=== PATIENT | female | born 1960 | race Caucasian/White ===

== ENCOUNTER 2018-12-21 08:06 | Outpatient (CLI) | payer BC, SELFPAY ==
--- NOTE | 2019-01-05 09:41 | ZIOP_ITS ---
[facility] MONITOR DATE OF DICTATION January 05, [address] 10 days, 1 hour, December 21 - 2018. Baseline rhythm sinus. Rare single PAC. 2 bursts SVT, longest 17 beat duration, fastest 154 beats per minute. No atrial fibr illation. Rare single PVC. No VT. No bradycardia or block. 12 triggered events all occurring during sinus rhythm, 67-87 beats per minute. 3 symptomatic episodes: Dizziness noted 3 times during sinus rhythm 71-82 beats per minute. Average heart rate sinus 70 beats per minute, range 52-109 beats per minute. Yoshi Ly M.D. DIAZ/amira T - 01/05/2019
== END 2018-12-21 08:26 ==
PROVIDERS: PCP Family Medicine; Visit Provider Family Medicine
DX: R42 Dizziness and giddiness (principal); I49.1 Atrial premature depolarization
CPT/HCPCS: 0296T

== ENCOUNTER 2019-01-03 01:28 | Outpatient (CLI) | payer BC, SELFPAY ==
[2019-01-03 07:38] LABS: HCT 42.7 % (36.0-46.0); HGB 13.9 g/dL (12.0-15.5); Mean Corp. HGB Concentration 32.6 g/dL (32.0-36.0); Mean Corpuscular Hemoglobin 28.4 pg (27.0-33.0); Mean Corpuscular Volume 87.3 fL (80-95); Mean Platelet Volume 9.8 fL (8.0-11.0); Platelet Count 281 x1000/uL (130-400); RBC 4.89 m/cumm (4.00-5.20); RBC Distribution Width 15.1 % (11.7-14.6); White Blood Cell Count 6.32 k/cumm (4.4-10.8)
[2019-01-03 07:54] LABS: Hemoglobin A1C 6.4 % (4.5-6.2)
[2019-01-03 08:55] LABS: ALT 31 U/L (14-59); AST 20 U/L (15-37); Albumin 3.5 g/dL (3.4-5.0); Alkaline Phosphatase 105 U/L (46-116); Anion Gap 11.7 mmol/L (3-11); BUN 12 mg/dL (7-18); Bilirubin, Total 0.2 mg/dL (0.2-1.0); CO2 24.3 mmol/L (21.0-32.0); CREATININE 0.83 mg/dL (0.55-1.02); Calcium 8.6 mg/dL (8.5-10.1); Calculated LDL 145 mg/dL; Chloride 106 mmol/L (98-107); Cholesterol 217 mg/dL (50-200); Glucose 110 mg/dL (70-100); HDL Cholesterol 39 mg/dL (40-60); Potassium 4.5 mmol/L (3.5-5.1); Sodium 142 mmol/L (136-145); TSH (W/Ref FT4) 4.55 uIU/mL (0.36-3.74); Total Protein 7.2 g/dL (6.4-8.2); Triglyceride 165 mg/dL (30-150); Vitamin B12 1897 pg/mL (193-986)
[2019-01-03 09:14] LABS: FREE T4 0.87 ng/dL (0.76-1.46)
== END 2019-01-03 01:48 ==
PROVIDERS: PCP Family Medicine; Visit Provider Family Medicine
DX: E78.5 Hyperlipidemia, unspecified (principal); I10 Essential (primary) hypertension; R42 Dizziness and giddiness; R73.03 Prediabetes; Z82.49 Family history of ischemic heart disease and other diseases of the circulatory system; Z83.3 Family history of diabetes mellitus; D51.1 Vitamin B12 deficiency anemia due to selective vitamin B12 malabsorption with proteinuria
CPT/HCPCS: 36415; 80053; 80061; 83721; 85027; 82607; 83036; 84439; 84443

== ENCOUNTER 2020-07-27 14:22 | Emergency (ER) | payer BC, SELFPAY ==
[2020-07-27] VITALS (44 sets, daily range): BP systolic 113–162; BP diastolic 69–112; PULSE 78–190; RESP 13–26; TEMP 36.7; O2SAT 92–96
--- NOTE | 2020-07-27 14:15 | RT.EKG_ITS ---
APPROVED REPORT Exam: Resting ECG Patient Location: E HR:173 bpm ECG Measurements Heart Rate 173 AXIS MT 100 P 0 QRSd 79 QRS 22 QT 274 T 133 QTc 467 Conclusion Supraventricular tachycardia...V-rate>(220-age), QRSd<120 Ventricular premature complex...V complex w/ short R-R interval Repolarization abnormality, prob rate related...ST dep, T neg, tachycardia
--- NOTE | 2020-07-27 14:30 | RT.EKG_ITS ---
APPROVED REPORT Exam: Resting ECG Patient Location: E HR:91 bpm ECG Measurements Heart Rate 91 AXIS NM 156 P 22 QRSd 72 QRS 7 QT 339 T 81 QTc 419 Conclusion Sinus rhythm...normal P axis, V-rate 60- [address] depression, lateral leads...ST <-0.07mV, I aVL V5 V6
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
[2020-07-27] MEDS: Adenosine 6 MG/2 ML VIAL IVP ×2 (14:50→14:51)
[2020-07-27 14:57] LABS: Abs Immature Grans 0.02 10^3/uL (0.0-0.06); Absolute Basophil Count 0.03 10^3/uL (0.0-0.2); Absolute Eosinophil Count 0.27 10^3/uL (0.0-0.7); Absolute Lymphocyte Count 2.93 10^3/uL (1.2-3.4); Absolute Neutrophil Count 4.97 10^3/uL (1.2-6.7); Basophils % 0.4; Eosinophils % 3.2; HGB 15.3 g/dL (11.2-15.7); Immature Grans % 0.2; Lymphocytes % 34.4; MCH 28.4 pg (27.0-33.0); MCHC 32.6 % (32.0-36.0); MCV 87.2 fL (80-95); Monocytes % 3.5; Neutrophils % 58.3; Nucleated RBC 0 %; Platelet Count 298 10^3/uL (130-400); RBC 5.39 10^6/uL (3.93-5.22); RDW 14.1 % (11.7-14.6); WBC 8.52 10^3/uL (4.4-10.8)
[2020-07-27 15:00] LABS: PTT Activated 24.1 sec (21.0-27.5); Prothrombin Time 10.4 sec (9.3-11.0)
[2020-07-27 15:05] LABS: ALT 33 U/L (14-59); AST 15 U/L (15-37); Albumin 3.9 g/dL (3.4-5.0); Alkaline Phosphatase 112 U/L (46-116); Anion Gap 11.4 mmol/L (3-11); BUN 20 mg/dL (7-18); Bilirubin, Total 0.3 mg/dL (0.2-1.0); CO2 26.6 mmol/L (21.0-32.0); CREATININE 0.9 mg/dL (0.55-1.02); Calcium 10.1 mg/dL (8.5-10.1); Chloride 102 mmol/L (98-107); Glucose 136 mg/dL (74-106); Magnesium 1.9 mg/dL (1.8-2.4); Potassium 3.9 mmol/L (3.5-5.1); Sodium 140 mmol/L (136-145); Total Protein 8.3 g/dL (6.4-8.2)
[2020-07-27 15:07] LABS: Troponin I < 0.05 ng/mL (<0.06)
--- NOTE | 2020-07-27 15:36 | DI.RAD_ITS ---
EXAM: XR PORTABLE CHEST AP CLINICAL HISTORY: svt, r/o acute disease TECHNIQUE: 2D digital imaging was performed. COMPARISON: CR BARIUM SWALLOW W PA LAT CXR from 06/28/2015 FINDINGS: Leads overlie the chest. Heart size is within normal limits. The lungs appear clear. No infiltrate , effusion or pulmonary edema is seen. IMPRESSION: No acute pulmonary findings. DATA REPOSITORY: RADIATION DOSE DELIVERED:
--- NOTE | 2020-07-27 16:15 | RT.EKG_ITS ---
APPROVED REPORT Exam: Resting ECG Patient Location: E HR:81 bpm ECG Measurements Heart Rate 81 AXIS [place] 155 P 26 QRSd 69 QRS 5 QT 358 T 48 QTc 416 Conclusion Sinus rhythm...normal P axis, V-rate 60- 99. No STEMI. I have reviewed and interpreted ECG and agree with software generated interpretation.
[2020-07-27 17:58] LABS: Troponin I < 0.05 ng/mL (<0.06)
--- NOTE | 2020-07-27 18:24 | NUR.NOTE ---
Nursing Note: Referral faxed to PCP for follow up next week for SVT. Monie Schofield
== END 2020-07-27 18:35 | disposition home or self-care (01) ==
PROVIDERS: Emergency Medicine; Emergency Provider Physician Assistant; PCP Family Medicine
DX: I47.1 Supraventricular tachycardia (principal)
CPT/HCPCS: 80053; 93005; 96374; 99291; 71045; 83735; 84484; 85025; 85610; 85730; 93010; J0153

== ENCOUNTER 2021-03-22 10:32 | Outpatient (REF) | payer BC, SELFPAY ==
--- NOTE | 2021-03-22 10:00 | PAPFT_PTH ---
PATIENT: Tami Ellison LOC: [facility] U#:[id number] AGE/SX: 60/F ROOM: RE03/22/[address]: Sherita Penny : 1960 BED: DIS: 03/22/2021 SPEC #: [id number] RECD: 03/22/21 12:53 STATUS: DANIEL REQ #: [id number] MARVIN: 03/22/21 10:[address]: Sherita Penny DEPT: [facility] Cytology RECD BY: Mildred Lanza Tissues: 1 - CX/ENDOCX FOR PAP SMEARS Procedures: PAP THIN PREP/UVM Screening HPV DNA PROBE Comments: [id number]
== END 2021-03-22 10:33 | disposition home or self-care (01) ==
LOC: LBN 10:32
PROVIDERS: PCP Family Medicine; Visit Provider Family Medicine
DX: Z12.4 Encounter for screening for malignant neoplasm of cervix (principal); Z11.51 Encounter for screening for human papillomavirus (HPV)
CPT/HCPCS: 88142; 87624

== ENCOUNTER 2021-03-25 03:15 | Outpatient (CLI) | payer BC, SELFPAY ==
[2021-03-25 14:34] LABS: ALT 42 U/L (14-59); AST 24 U/L (15-37); Albumin 3.9 g/dL (3.4-5.0); Alkaline Phosphatase 104 U/L (46-116); Anion Gap 10.6 mmol/L (3-11); BUN 14 mg/dL (7-18); Bilirubin, Total 0.4 mg/dL (0.2-1.0); CO2 27.4 mmol/L (21.0-32.0); CREATININE 0.7 mg/dL (0.55-1.02); Calcium 9.1 mg/dL (8.5-10.1); Calculated LDL 175 mg/dL (<100); Chloride 103 mmol/L (98-107); Cholesterol 256 mg/dL (<200); Glucose 102 mg/dL (74-106); HDL Cholesterol 41 mg/dL (40-60); Potassium 4.8 mmol/L (3.5-5.1); Sodium 141 mmol/L (136-145); TSH (W/Ref FT4) 1.73 uIU/mL (0.36-3.74); Total Protein 7.4 g/dL (6.4-8.2); Triglyceride 201 mg/dL (<150)
== END 2021-03-25 03:16 | disposition home or self-care (01) ==
LOC: LOS 03:15
PROVIDERS: PCP Family Medicine; Visit Provider Family Medicine
DX: I10 Essential (primary) hypertension (principal); E78.5 Hyperlipidemia, unspecified; E78.6 Lipoprotein deficiency; R73.9 Hyperglycemia, unspecified; E66.9 Obesity, unspecified
CPT/HCPCS: 36415; 80053; 80061; 83036; 84443

== ENCOUNTER 2021-04-11 01:25 | Outpatient (CLI) | payer BC, SELFPAY ==
--- NOTE | 2021-04-11 | DI.US_ITS ---
Exam(s) US BREAST LT COMPLETE MG MAMMO SCREENING 60 MIN DUR EXAM: MG MAMMO SCREENING 60 MIN DUR CLINICAL HISTORY: breast cancer screening, PERSONAL H/O BREAST CA, C50.919. TECHNIQUE: Bilateral full field digital CC and MLO mammographic images were obtained with 3D tomosyn thesis and utilizing computer aided detection (CAD). COMPARISON: Prior mammograms dating back to 2014, the most recent being December 2018. Patient has had prior right breast lumpectomy 2006 FINDINGS: The right breast lumpectomy site remains stable, with unchanged scarring, architectural distortion, a nd dystrophic calcification. There are no new right breast findings. In the left breast on the CC view there is a subtle density seen centrally, measuring 9 x 7 millimete rs and located 6 cm in from the nipple. We performed spot compression view of this area and this renders this area less concerning and simila r in appearance to prior mammograms. There are no malignant-appearing microcalcification groups is r egion or elsewhere in either breast. Complete left breast ultrasound was performed immediately following this mammogram and revealed no si gnificant focal findings. Also no adenopathy in the left axilla. IMPRESSION: 1. Stable appearance of right breast lumpectomy site (2006). 2. Asymmetric density in the left breast which is less concerning on additional imaging as describe d above. Appropriate follow-up, as discussed by myself with the patient today, is repeat left breast mammogram in 6 months, with earlier imaging if a self detected breast change is noted. BI-RADS Category 3 - 6 month - Probably Benign Finding: Recommend follow-up mammography in 6 months Breast Density - Category B - Scattered areas of fibroglandular density Breast density Category C or D implies that the patient has dense breast tissue. Dense breast tissue can make it harder to find cancer on a mammogram. Dense breast tissue is also associated with an incr eased risk of breast cancer. This information about the result of the mammogram report was provided to the patient to raise their awareness. Use this report when you speak with the patient about their risks for breast cancer, which includes their family history. At that time, you may recommend additional screening tests (Ultrasoun d or MRI) as these tests may add significant information. A negative radiographic report should not delay biopsy if a dominant or clinically suspicious mass is present. Up to ten percent of cancers are not identified on mammography. A negative report may reinforce clinical impression. Adenosis and dense breasts may obscure an underlying neoplasm. False positive reports average 6 to 10%. Patient will receive a letter notifying them of these results.
== END 2021-04-11 01:45 ==
PROVIDERS: PCP Family Medicine; Visit Provider Family Medicine
DX: Z12.31 Encounter for screening mammogram for malignant neoplasm of breast (principal); Z85.3 Personal history of malignant neoplasm of breast; R92.8 Other abnormal and inconclusive findings on diagnostic imaging of breast
CPT/HCPCS: 76642; 77063; 77067

== ENCOUNTER 2021-12-30 07:32 | Day surgery (SDC) | payer BC, SELFPAY ==
--- NOTE | 2021-12-30 06:28 | W.COLOREPORT ---
Colonoscopy Report Date of procedure: 12/30/21 Pre-op diagnosis general: colon cancer screening Post-op diagnosis procedure note: other (colorectal polyps and diverticulosis) Procedure: Colonoscopy with polypectomy Surgeon: Gail Quijano Anesthesia Type: General:No Airway Estimated blood loss (mL): 3 Pathology: other (rectal and ascending polyp) Complications: None Disposition: same day Indications: The patient is here for Colonoscopy pre-op. Her last screening was in 2008 and was unremarkable. She has no family history of colon cancer. She has not had any bowel habit changes. -Discussed colonoscopy bowel prep as well as the procedure. Discussed possible complications of the procedure to include bleeding, pain, perforation, missed small lesion/polyp, sore throat, aspiration and adverse reaction to the medications. Questions were answered to patient?s satisfaction. No guarantees were implied or given.? BP elevated today, patient expressed she was nervous about todays appointment. Will continue to monitor. P// Colonoscopy under sedation. Prep: Miralax/Dulcolax Procedure Start Time: 09:39 Procedure End Time: 10:04 Retraction Time: 12 minutes Findings: 2 polyps and mild preston-diverticulosis Procedure Description: After informed consent was obtained the patient was taken to the procedure room and placed in a left decubitous position. Monitors were applied and a time out was done. The patients name, date of , procedure, allergies to medications and metal in their body was reviewed. The patient was then sedated. Once sedated and comfortable a rectal exam was done. External exam was normal. Internal exam revealed a normal sphincter tone and no palpable masses. The scope was then introduced and retro-flexed. no internal hemorrhoids, polyps or masses were identified on retro-flexion. The scope was then advanced to the cecum without difficulty. The ileocecal vlave and appendiceal orifice were identified. The prep was good. The scope was then slowly retracted over 12 minutes back into the rectum. Polyps were removed with cold forceps in the ascending colon and rectum. There was mild preston- diverticulosis noted. The scope was removed and the patient was woken up and taken back to Same day surgery in stable condition. The patient tolerated the procedure well and there were no immediate complications. Follow up: The patient should follow up in 5 years unless they develop changes in bowel habits or other new gastrointestinal complaints.
--- NOTE | 2021-12-30 06:29 | W.PM.DSUDISC ---
Discharge Plan Disposition Patient Disposition: HOME Condition: Good Discharge Details Reason For Visit: colonoscopy Attending Provider: Gail Quijano Primary Care Provider: Simone Dawkins Home Meds and New Rx's Prescriptions: Continued cyanocobalamin (vitamin B-12) [Vitamin B-12] 1,000 mcg tablet 2,500 mcg PO every other day Qty: 90 3RF losartan 100 mg tablet 100 mg PO DAILY Qty: 90 3RF Discontinued bisacodyl [Dulcolax (bisacodyl)] 5 mg tablet,delayed release (DR/EC) 5 mg PO ONCE Qty: 4 0RF Rx Instructions: Take according to provider's instructions for colonoscopy prep. polyethylene glycol 3350 17 gram/dose powder 17 g PO ONCE Qty: 238 0RF Rx Instructions: To be taken as directed by prescriber's office for colonoscopy prep. Discharge Instructions Instructions: Colorectal Polyps (DC), Diverticulosis (DC) Additional Instructions: Findings: 2 polyps Diverticulosis Follow up: most likely 5 years Please call if you develop: fevers >101.5 Nausea or Vomiting Abdominal pain that is not transient Rectal bleeding that is more then a tbsp A hard abdomen and inability to pass gas DAY SURGERY UNIT POST ENDOSCOPY INSTRUCTIONS Instructions for everyone who is given Anesthesia: For your safety, please do the following for the next 24 Hours: a. Do not drive or operate dangerous equipment b. Do not drink alcohol beverages or use any recreational drugs for the first 24 hours or while taking pain medications. The medications in your body may have a reaction that can be dangerous. c. Do not make any important decisions or sign any important papers 1. Generally there are no restrictions on your activity after a day or so has gone by, but you may feel a bit fatigued for a few days. 2. After you arrive home you may have a light meal and return to a normal diet as you can tolerate it without feeling sick to your stomach. 3. After surgery, you may feel pain or discomfort. This should be only transient, but if it persists please contact your doctor. 4. If there are any questions regarding the findings of your procedure, please feel free to contact your doctor. 6. If you are unable to contact your doctor with a problem, contact the hospital at [phone]. 7. Continue all your regular medications unless directed otherwise. I understand the above instructions and have no questions. Signature of Patient or Responsible Adult Escort Date/Time Name of Responsible Adult Escort Signature of Nurse Date/Time Activity:: Activity as Tolerated Diet:: high fiber Discharge Orders Discharge Orders: Discharge Order (Routine); Ordered 12/30/21 Ordered By: Gail Quijano
[2021-12-30 07:46] VITALS: BP 167/88; PULSE 75; RESP 19; TEMP 36.7; O2SAT 94
[2021-12-30] MEDS: Lactated Ringers 1,000 ML 80 ML IV (08:00)
--- NOTE | 2021-12-30 09:03 | W.ANESPRE ---
General Info Date of Service Date Performed: 12/30/21 Height: 5 ft 2 in Weight: 111.3 kg Body Mass Index (BMI): 44.9 Surgical Procedure: Operation Date: 12/30/21 10:05 Proposed Procedure Side Surgeon p Va Quijano MD Meds Allergies and Home Medications Allergies Allergy/AdvReac Type Severity Reaction Status Date / Time Penicillins Allergy Rash Verified 12/30/21 07:52 aspirin AdvReac GI Upset Verified 12/30/21 07:52 ibuprofen AdvReac GI Upset Verified 12/30/21 07:52 Home Medication Medication Instructions Recorded cyanocobalamin (vitamin B-12) 2,500 mcg PO every other day #90 03/19/20 1,000 mcg tablet (Vitamin B-12) tabs losartan 100 mg tablet 100 mg PO DAILY #90 tabs 08/30/21 bisacodyl 5 mg tablet,delayed 5 mg PO ONCE #4 tabs 12/19/21 release (Dulcolax (bisacodyl)) polyethylene glycol 3350 17 17 g PO ONCE #238 grams 12/19/21 gram/dose oral powder Current Visit Medications: Current Medications Generic Name Dose Route Start Last Admin Trade Name Freq PRN Reason Stop Dose Admin Hyoscyamine Sulfate 0.125 mg 12/30/21 06:30 Hyoscyamine 0.125 Mg Sl/Oral/Chew SL DIRECTED PRN Ringer's Solution 1,000 mls @ 80 mls/hr 12/30/21 06:00 12/30/21 08:00 IV 01/26/22 23:59 80 mls/hr INFUSION MARKELL Administration IV Miscellaneous Supplies 1 each 12/30/21 06:00 Iv Access IV 01/26/22 23:59 DIRECTED MARKELL Ondansetron HCl 4 mg 12/30/21 06:30 Ondansetron 4 Mg/2 Ml Vial IVP Q4H PRN PRN Nausea / Vomiting Sodium Chloride 0 ml 12/30/21 06:00 Normal Saline Flush 10 Ml Syr IV 01/26/22 23:59 PRN PRN Sodium Chloride 0 ml 12/30/21 06:00 Normal Saline 10 Ml Vial IJ 01/26/22 23:59 DIRECTED PRN Sterile Water 0 ml 12/30/21 06:00 Water,Injection,Sterile 10 Ml Vial IJ 01/26/22 23:59 DIRECTED PRN [facility] Active Problems Active Problems: Problem Status Onset Code SVT (supraventricular tachycardia) I47.1 Obstructive sleep apnea syndrome 10/06/12 G47.33 Medical History Medical History Anal fissure intermittent Basal cell carcinoma of cheek (06/12/11) Dizziness (11/23/17) varies with position, sinus congestion. Essential hypertension (06/24/13) Family history of coronary artery disease in mother (11/23/17) Family history of diabetes mellitus in first degree relative (11/23/17) GERD (gastroesophageal reflux disease) Globus pharyngeus (05/07/15) intermittent, felt to be associated with reflux, testing negative. 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 DAVIDSON History of appendectomy History of bilateral ligation of fallopian tubes History of breast reconstruction History of section History of mastectomy Tobacco Smoking/Tobacco Use Status: Never Passive smoking exposure: No Second hand exposure: Yes Alcohol Alcohol Intake: current Alcohol intake frequency: a few times a month Substance Use Substance use: Never Substance use type: does not use Vital Signs and Lab Results Vital Signs Most Recent Vital Signs in EMR: Most Recent Vital Signs Temp Pulse Resp BP Pulse Ox 36.7 C 75 19 167/88 H 94 12/30/21 07:46 12/30/21 07:46 12/30/21 07:46 12/30/21 07:46 12/30/21 07:46 Lab Results Blood Type / Crossmatch: No Data to Display Complete Blood Count: No Data to Display Complete Metabolic Panel: No Data to Display Liver Function Panel: No Data to Display Coagulation Panel: No Data to Display Cardiac Panel: No Data to Display Arterial Blood Gas: No Data to Display Venous Blood Gas: No Data to Display Pancreas Panel: No Data to Display Thyroid Panel: No Data to Display Infectious Disease: No Data to Display Blood Cultures: No Data to Display Toxicology Panel: No Data to Display Anesthesia Assessment and Plan Anesthesia History Personal History: No History of Anesthesia Complications Family History: No Family History of Anesthesia Complications Exercise Tolerance Exercise Tolerance: Metabolic Equivalents>4 Pertinent Negatives Pertinent Negatives: No Major Cardiovascular Symptoms or Complaints (Hx SVT last year, occasional heart palpations since), No Major Pulmonary Symptoms or Complaints (KRAIG wears CPAP everynight ) and No History of CVA/TIA Cardiac & Pulmonary Exam Cardiac Exam: Normal S1/S2 Heart Sounds Pulmonary Exam: Clear Bilateral Breath Sounds Implantable Cardiac Device Does patient have a Pacemaker or an ICD?: No Airway Exam Known Difficult Airway: No Mallampati Class: 2 Mouth Opening: Narrow (< 3cm) Thyromental Distance: Less than 3 cm Neck Range of Motion: Limited ROM Neck Circumference: Thick Teeth Condition: Normal Dentition Airway Comments: Broken bottom left ASA Classification ASA Score: ASA 3 Emergency Case?: No NPO Status NPO Status: NPO Clears >2 hours, Solids >8 hours Anesthesia Plan Resuscitation Status: Full Code Anesthesia Technique: General Anesthesia Airway Planned: Natural Airway Monitors Used: Standard Monitors
[2021-12-30 09:08] VITALS: BMI 44.9
--- NOTE | 2021-12-30 09:41 | BOWEL_PTH ---
PATIENT: Tami Ellison LOC: [facility] U#:[id number] AGE/SX: 61/F ROOM: RE12/30/[address]: Gail Quijano MD : 1960 BED: DIS: 12/30/2021 SPEC #: [id number] RECD: 12/30/21 11:37 STATUS: DANIEL REQ #: [id number] MARVIN: 12/30/21 09:[address]: Gail Quijano DEPT: Surgical Specimen RECD BY: Mildred Lanza ENTERED: 12/30/21 11:37 SP TYPE: Bowel OTHR DR: Simone Dawkins, HOSPITAL COORDINATOR Tissues: 1 - BIOPSY BOWEL 2 - BIOPSY BOWEL Procedures: GROSS AND MICRO LEVEL 4 Comments: [id number]
[2021-12-30 10:16] VITALS: BP 115/72; PULSE 70; RESP 17; TEMP 36.8; O2SAT 95
--- NOTE | 2021-12-30 10:17 | W.ANESPOSTOP ---
Postoperative Evaluation Date, Time and Location Date Performed: 12/30/21 Time Performed: 10:17 Patient Location: Day Surgery Unit Vital Signs Most Recent Imported Vital Signs: Most Recent Vital Signs Temp Pulse Resp BP Pulse Ox 36.7 C 75 19 167/88 H 94 12/30/21 07:46 12/30/21 07:46 12/30/21 07:46 12/30/21 07:46 12/30/21 07:46 Most Recent Manually Entered Vital Signs: Adult Blood Pressure: 115/72 Heart Rate: 69 Respirations: 12 Oxygen Saturation (%): 94 Temperature (C): 36.3 C Pain Score (0-10 Scale): 0 Pain Score Most Recent Pain Score: Most Recent Pain Score Pain Level 0 12/30/21 07:46 Assessment Mental Status: Awake (Alert & Oriented to Patient Baseline) Airway and Respiratory Function: Patent airway with normal (patient baseline) respiratory exam Cardiovascular Function: Hemodynamically Stable Hydration Status: Adequately Hydrated Nausea & Vomiting: No Nausea or Vomiting Pain: Pt. Denies Any Pain Peripheral Nerve Block: Patient did not receive a nerve block
[2021-12-30 10:19] VITALS: BP 115/72; PULSE 69; RESP 12; TEMPC 36.3; O2SAT 94
[2021-12-30 10:37] VITALS: BP 131/85; PULSE 63; RESP 18; TEMP 36.7; O2SAT 94
== END 2021-12-30 10:55 | disposition home or self-care (01) ==
PROVIDERS: PCP Nurse Practitioner Family; Visit Provider Surgery
PROC: 0DJD8ZZ Inspection of Lower Intestinal Tract, Via Natural or Artificial Opening Endoscopic (ICD-10-PCS; CPT 45378; principal; 2021-12-30 10:00)
DX: Z12.11 Encounter for screening for malignant neoplasm of colon (principal); K57.30 Diverticulosis of large intestine without perforation or abscess without bleeding; K63.5 Polyp of colon
CPT/HCPCS: 45380; 88305; J2250

== ENCOUNTER 2022-05-14 02:50 | Outpatient (CLI) | payer BC, SELFPAY ==
--- NOTE | 2022-05-14 11:17 | DI.MAMMO_ITS ---
Exam(s) MG MAMMO SCREENING 60 MIN DUR EXAM: MG MAMMO SCREENING 60 MIN DUR CLINICAL HISTORY: breast cancer screening,PERSONAL H/O BREAST CA AND RECONSTRUCTION,C50.919, TECHNIQUE: Mammograms were interpreted according to the usual protocol including computer analysis w [facility] CAD system, tomosynthesis and C-view imaging. COMPARISON: 2014 through 2020 FINDINGS: The breasts are composed of scattered fibroglandular densities, Breast Density category B. Patient is status post right lumpectomy. Scarring and coarse calcification are again noted in this a nadya. No suspicious masses or suspicious microcalcifications are seen. No skin thickening or abnormal axillary lymph nodes are seen. There has been no significant change from prior exams. IMPRESSION: BI-RADS Cat 2 - Benign Findings Yearly screening mammography is recommended. Breast Density - Category B, scattered fibroglandular densities. A negative radiographic report should not delay biopsy if a dominant or clinically suspicious mass is present. Up to ten percent of cancers are not identified on mammography. A negative report may reinforce clinical impression. Adenosis and dense breasts may obscure an underlying neoplasm. False positive reports average 6 to 10%. Patient will receive a letter notifying them of these results.
== END 2022-05-14 03:10 ==
LOC: DI 02:50
PROVIDERS: PCP Nurse Practitioner Family; Visit Provider Nurse Practitioner Family
DX: Z98.82 Breast implant status (principal); Z12.31 Encounter for screening mammogram for malignant neoplasm of breast; Z85.3 Personal history of malignant neoplasm of breast; Z98.890 Other specified postprocedural states
CPT/HCPCS: 77063; 77067

== ENCOUNTER 2022-06-23 01:05 | Outpatient (CLI) | payer BC, SELFPAY ==
[2022-06-23 07:48] LABS: CREATININE 0.9 mg/dL (0.55-1.02); Calculated LDL 122 mg/dL (<100); Cholesterol 228 mg/dL (<200); Estimated GFR 71.83 (mL/min/1.73m2); HDL Cholesterol 42 mg/dL (40-60); Potassium 4.5 mmol/L (3.5-5.1); Triglyceride 322 mg/dL (<150)
== END 2022-06-23 01:06 | disposition home or self-care (01) ==
PROVIDERS: PCP Nurse Practitioner Family; Visit Provider Nurse Practitioner Family
DX: I10 Essential (primary) hypertension (principal); E78.2 Mixed hyperlipidemia
CPT/HCPCS: 36415; 80061; 82565; 84132

== ENCOUNTER 2023-01-02 11:14 | Emergency (ER) | payer BC, SELFPAY ==
[2023-01-02 11:57] VITALS: BP 186/92; PULSE 68; RESP 18; TEMP 37.3; O2SAT 96
--- NOTE | 2023-01-02 12:30 | DI.CT_ITS ---
Exam(s) CT THORAX ABD/PEL CTA EXAM: CT THORAX ABD/PEL CTA CLINICAL HISTORY: hypertensive, left mid upper back pain, LUQ pain. TECHNIQUE: Imaging Protocol: Axial CT angiography was performed with multi-slice acquisition and m ulti-planar and/or 3D reconstructions. CONTRAST MATERIAL: Intravenous: Omnipaque 350 contrast volume:125 mL Oral: No COMPARISON: CT HEAD WITH/WITHOUT CONTRAST from 10/05/2014 FINDINGS: CHEST: Tracheobronchial tree: Patent where visualized. Pulmonary parenchyma: No consolidation or dominant measurable mass. No architectural distortion. Pulmonary Arteries: No evidence of filling defect to suggest pulmonary emboli. Mediastinum and Sharon: No dominant adenopathy or fluid collection. The esophagus is unremarkable. Visualized thyroid: Unremarkable. Pleura: No effusion or pneumothorax. Heart: The heart is not dilated. No coronary artery calcifications are seen. No pericardial effusion. Aorta: Thoracic aorta non-dilated. Atherosclerosis. No evidence of dissection. Soft Tissues: Unremarkable. Bones: Within normal limits for the patient's age. ABDOMEN AND PELVIS: Abdomen: Celiac axis/mesenteric arteries: No evidence of occlusion or significant stenosis. Renal Arteries: No evidence of occlusion or significant stenosis. There is a single renal artery per fusing each kidney. Aorta: No evidence of occlusion or significant stenosis. No aneurysm or dissection. Atherosclerosi s. Pelvis: Iliac Arteries: No evidence of occlusion or significant stenosis. Common Femoral Arteries: No evidence of occlusion or significant stenosis. ABDOMEN: Liver: Normal density. No measurable mass. Gallbladder and Biliary Tract: Gallstones. No biliary ductal dilatation. Pancreas: Normal density, no abnormal calcifications or inflammatory process. Spleen: Normal. Adrenals: Less than 1 cm nodule on the left adrenal gland. No follow-up is recommended. Kidneys: Normal size, contour and axis. No radiodense stones or obstructive uropathy. No masses seen. Bowel: No obstruction or bowel wall thickening. Appendix is unremarkable. Peritoneal Cavity: No ascites, collection or mesenteric inflammatory response. No free air. Lymph Nodes: Within normal limits. Bones: Within normal limits for the patient's age. Soft Tissues: Small fat containing umbilical hernia. PELVIS: Bladder: Symmetric distention, no gross wall thickening. Reproductive Organs: Unremarkable as visualized. Lymph Nodes: Within normal limits. Bones: Within normal limits for the patient's age. IMPRESSION: 1. No evidence of aneurysm or dissection. 2. No evidence of a pulmonary embolism. 3. Cholelithiasis. No biliary ductal dilatation. 4. Findings were discussed with Dr. Knox at 4:04 p.m. on 01/02/2023. RADIATION DOSE DELIVERED: 1,333.96mGy.cm Total DLP DATA REPOSITORY: All CT scans at this facility are submitted to the National Radiology Data Registry (NRDR) Dose Index Registry (DIR) with the [employer] ([employer]). RADIATION OPTIMIZATION: All CT scans at this facility use at least one of these dose optimization te chniques: automated exposure control; mA and/or kV adjustment per patient size (includes targeted exa ms where dose is matched to clinical indication); or iterative reconstruction.
[2023-01-02 13:49] LABS: Bilirubin Negative (Negative); Blood Negative (Negative); Clarity Clear (Clear); Glucose Negative (Negative); Ketones Negative (Negative); Leukocyte Esterase Negative (Negative); Nitrite Negative (Negative); Urobilinogen 0.2 mg/dL (Up to 0.2); pH 5.5 (5-8)
[2023-01-02] MEDS: Lidocaine 5% Patch 1 PATCH TP (14:10)
[2023-01-02 14:21] LABS: Abs Immature Grans 0.04 10^3/uL (0.0-0.06); Absolute Basophil Count 0.03 10^3/uL (0.0-0.2); Absolute Eosinophil Count 0.14 10^3/uL (0.0-0.7); Absolute Lymphocyte Count 2.52 10^3/uL (1.2-3.4); Absolute Monocyte Count 0.47 10^3/uL (0.1-0.8); Absolute Neutrophil Count 5.52 10^3/uL (1.2-6.7); Basophils % 0.3; Eosinophils % 1.6; HCT 44.9 % (36.0-46.0); HGB 14.5 g/dL (11.2-15.7); Immature Grans % 0.5; Lymphocytes % 28.9; MCH 27.9 pg (27.0-33.0); MCHC 32.3 % (32.0-36.0); MCV 87 fL (80-95); MPV 9.1 fL (8.0-11.0); Monocytes % 5.4; Neutrophils % 63.3; Platelet Count 270 10^3/uL (130-400); RBC 5.19 10^6/uL (3.93-5.22); RDW 14.6 % (11.7-14.6); RDW-SD 46.6 fL; WBC 8.72 10^3/uL (4.4-10.8)
[2023-01-02] MEDS: ACETAMINOPHEN 1,000 MG/100 ML BTL 400 MG IVPB (14:21)
[2023-01-02 14:36] LABS: Lipase 27 U/L (16-77)
[2023-01-02 14:39] LABS: ALT 40 U/L (14-59); AST 20 U/L (15-37); Albumin 3.8 g/dL (3.4-5.0); Alkaline Phosphatase 102 U/L (46-116); Anion Gap 9.1 mmol/L (3-11); BUN 10 mg/dL (7-18); Bilirubin, Total 0.4 mg/dL (0.2-1.0); CO2 28.9 mmol/L (21.0-32.0); CREATININE 0.8 mg/dL (0.55-1.02); Calcium 9.4 mg/dL (8.5-10.1); Chloride 103 mmol/L (98-107); Estimated GFR 82.23 (mL/min/1.73m2); Glucose 98 mg/dL (74-106); Potassium 3.7 mmol/L (3.5-5.1); Sodium 141 mmol/L (136-145)
--- NOTE | 2023-01-02 14:48 | ED.GENADUL_ITS ---
Discharge Plan Disposition Patient Disposition: Home Condition: Stable Discharge Details Clinical Impression: Acute left-sided back pain Primary Care Provider: Simone Dawkins ED Provider: Ko Knox Home Meds and New Rx's Prescriptions: Continued cyanocobalamin (vitamin B-12) [Vitamin B-12] 1,000 mcg tablet 2,500 mcg PO every other day Qty: 90 3RF losartan 100 mg tablet 100 mg PO DAILY Qty: 90 3RF Discharge Instructions Instructions: Back Pain (ED) Additional Instructions: Your blood pressure was elevated today. Please take your antihypertensive medication as prescribed. Please be sure to follow-up with your primary care physician for recheck. Please take acetaminophen (tylenol) - 650mg every 6 hours by mouth as needed for pain. Use lidocaine patch. Dose according to label. Please contact your primary care physician to arrange follow-up. Return to the ER immediately for any worsening or new concerning symptoms. Referrals: Simone Dawkins, ELEVATOR OPERATOR [Primary Care Provider] - Medical Decision Making [id number]??62-year-old female here with gradually worsening and now severe discomfort in her left mid to upper back radiating to left upper quadrant of the abdomen. Patient does have some abdominal tenderness on palpation of left upper quadrant. Patient is hypertensive. Consider acute aortic pathology including AAA. Plan to obtain CTA of the chest abdomen pelvis. Considered renal stone versus pyelonephritis - no urinary symptoms. Will obtain UA. Patient has been given acetaminophen IV and lidocaine patch placed for analgesia. --Labs reviewed and nondiagnostic. 1620 -- CTA of the chest abdomen pelvis was interpreted by radiology: 1. No evidence of aneurysm or dissection. 2. No evidence of a pulmonary embolism. 3. Cholelithiasis. No biliary ductal dilatation. 4. Findings were discussed with Dr. Knox at 4:04 p.m. on 01/02/2023. Patient was reassessed and notes complete resolution of pain after IV Tylenol. Plan to continue supportive care and recommended outpatient follow-up. BP remains elevated. I discussed this with patient and she understands importance of timely follow-up with PCP. She does note that she thinks is elevated because she is here in the hospital. Lab Data Lab results reviewed: Yes I reviewed the patient's lab results. Labs: Laboratory Tests Range/Units 01/02/23 01/02/23 01/02/23 13:21 14:15 14:15 WBC (4.4-10.8) 10^3/uL RBC (3.93-5.22) 10^6/uL Hgb (11.2-15.7) g/dL Hct (36.0-46.0) % MCV (80-95) fL MCH (27.0-33.0) pg MCHC (32.0-36.0) % RDW (11.7-14.6) % Plt Count (130-400) 10^3/uL MPV (8.0-11.0) fL Immature Gran % Neutrophils % Lymphocytes % Monocytes % Eosinophils % Basophils % Nucleated RBC % (0.0-0.3) % Absolute Neutrophils (1.2-6.7) 10^3/uL Absolute Lymphocytes (1.2-3.4) 10^3/uL Absolute Monocytes (0.1-0.8) 10^3/uL Absolute Eosinophils (0.0-0.7) 10^3/uL Absolute Basophils (0.0-0.2) 10^3/uL Sodium (136-145) mmol/L 141 Potassium (3.5-5.1) mmol/L 3.7 Chloride (98-107) mmol/L 103 Carbon Dioxide (21.0-32.0) mmol/L 28.9 Anion Gap (3-11) mmol/L 9.1 BUN (7-18) mg/dL 10 Creatinine (0.55-1.02) mg/dL 0.8 Est GFR (CKD-EPI 2020) (mL/min/1.73m2) 82.23 Glucose (74-106) mg/dL 98 Calcium (8.5-10.1) mg/dL 9.4 Magnesium (1.8-2.4) mg/dL 2.0 Total Bilirubin (0.2-1.0) mg/dL 0.4 AST (15-37) U/L 20 ALT (14-59) U/L 40 Alkaline Phosphatase (46-116) U/L 102 Total Protein (6.4-8.2) g/dL 8.0 Albumin (3.4-5.0) g/dL 3.8 Lipase (16-77) U/L 27 Urine Color (Yellow) Yellow Urine Clarity (Clear) Clear Urine pH (5-8) 5.5 Ur Specific [place] (1.005-1.025) 1.020 Urine Protein (Negative) mg/dL Negative Urine Ketones (Negative) mg/dL Negative Urine Blood (Negative) Negative Urine Nitrite (Negative) Negative Urine Bilirubin (Negative) Negative Urine Urobilinogen (Up to 0.2) mg/dL 0.2 Ur Leukocyte Esterase (Negative) Negative Urine Glucose (Negative) mg/dL Negative Range/Units 01/02/23 14:15 WBC (4.4-10.8) 10^3/uL 8.72 RBC (3.93-5.22) 10^6/uL 5.19 Hgb (11.2-15.7) g/dL 14.5 Hct (36.0-46.0) % 44.9 MCV (80-95) fL 87 MCH (27.0-33.0) pg 27.9 MCHC (32.0-36.0) % 32.3 RDW (11.7-14.6) % 14.6 Plt Count (130-400) 10^3/uL 270 MPV (8.0-11.0) fL 9.1 Immature Gran % 0.5 Neutrophils % 63.3 Lymphocytes % 28.9 Monocytes % 5.4 Eosinophils % 1.6 Basophils % 0.3 Nucleated RBC % (0.0-0.3) % 0.0 Absolute Neutrophils (1.2-6.7) 10^3/uL 5.52 Absolute Lymphocytes (1.2-3.4) 10^3/uL 2.52 Absolute Monocytes (0.1-0.8) 10^3/uL 0.47 Absolute Eosinophils (0.0-0.7) 10^3/uL 0.14 Absolute Basophils (0.0-0.2) 10^3/uL 0.03 Sodium (136-145) mmol/L Potassium (3.5-5.1) mmol/L Chloride (98-107) mmol/L Carbon Dioxide (21.0-32.0) mmol/L Anion Gap (3-11) mmol/L BUN (7-18) mg/dL Creatinine (0.55-1.02) mg/dL Est GFR (CKD-EPI 2020) (mL/min/1.73m2) Glucose (74-106) mg/dL Calcium (8.5-10.1) mg/dL Magnesium (1.8-2.4) mg/dL Total Bilirubin (0.2-1.0) mg/dL AST (15-37) U/L ALT (14-59) U/L Alkaline Phosphatase (46-116) U/L Total Protein (6.4-8.2) g/dL Albumin (3.4-5.0) g/dL Lipase (16-77) U/L Urine Color (Yellow) Urine Clarity (Clear) Urine pH (5-8) Ur Specific [place] (1.005-1.025) Urine Protein (Negative) mg/dL Urine Ketones (Negative) mg/dL Urine Blood (Negative) Urine Nitrite (Negative) Urine Bilirubin (Negative) Urine Urobilinogen (Up to 0.2) mg/dL Ur Leukocyte Esterase (Negative) Urine Glucose (Negative) mg/dL HPI General Mode of arrival: ambulatory . Date/Time Provider Initiated Documentation: 01/02/23 12:27 . Limitations to Documentation: no limitations . Information obtained by: patient . HPI Narrative: 62-year-old female with history of hyperlipidemia, prediabetes, hypertension, obesity, SVT, presents with chief complaint of left mid to upper back pain. Pain started 3 days ago and came on gradually. Pain is worsened significantly since onset. Pain now radiating to left lower ribs and upper abdomen. Pain does not worsen with deep inspiration. She denies associated chest pain. No associated urinary symptoms. Patient was seen in urgent care who recommended outpatient labs and CT and patient declined and decided to seek care in the emergency department. Related Data Home Medications Medication Instructions Recorded Confirmed cyanocobalamin (vitamin B-12) 2,500 mcg PO every other day #90 03/19/20 01/02/23 1,000 mcg tablet (Vitamin B-12) tabs losartan 100 mg tablet 100 mg PO DAILY #90 tabs 04/24/22 01/02/23 Previous Rx's Medication Instructions Recorded cyanocobalamin (vitamin B-12) 2,500 mcg PO every other day #90 03/19/20 1,000 mcg tablet (Vitamin B-12) tabs losartan 100 mg tablet 100 mg PO DAILY #90 tabs 04/24/22 Allergies Allergy/AdvReac Type Severity Reaction Status Date / Time Penicillins Allergy Rash Verified 01/02/23 10:25 aspirin AdvReac GI Upset Verified 01/02/23 10:25 ibuprofen AdvReac GI Upset Verified 01/02/23 10:25 General Stated Complaint: Nk/Back Pain MICHEL: 4 Review of Systems All systems reviewed & are unremarkable except as noted in HPI and below Constitutional Constitutional: Denies fever(s) Gastrointestinal Gastrointestinal: Denies nausea and Denies vomiting PFSH All Active Problems (Updated 01/02/23 @ 16:17 by Ko Knox MD) Acute left-sided back pain (Acute) Hyperlipemia, mixed (Acute) Prediabetes (Acute) Vitamin B12 deficiency anemia due to selective vitamin B12 malabsorption with proteinuria (Acute) Rosacea (Acute 11/23/17) Essential hypertension (Chronic 06/24/13) Tubular adenoma of colon (Acute) SVT (supraventricular tachycardia) (Chronic) self limited, treated at ED. Obstructive sleep apnea syndrome (Acute 10/06/12) C-pap Medical History Anal fissure intermittent Basal cell carcinoma of cheek (06/12/11) Dizziness (11/23/17) varies with position, sinus congestion. Family history of coronary artery disease in mother (11/23/17) Family history of diabetes mellitus in first degree relative (11/23/17) GERD (gastroesophageal reflux disease) Globus pharyngeus (05/07/15) intermittent, felt to be associated with reflux, testing negative. 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 DAVIDSON History of appendectomy History of bilateral ligation of fallopian tubes History of breast reconstruction History of section History of colonoscopy (~12/2021) History of mastectomy Family History Mother , 63 Essential hypertension Heart disease Hyperlipidemia Father , 24 Essential hypertension Pancreatitis Sister Diabetes Essential hypertension Depression Heart disease Hyperlipidemia Brother No problems noted. Maternal Grandfather , 57 No problems noted. Paternal Grandfather No problems noted. Maternal Grandmother No problems noted. Paternal Grandmother No problems noted. Son Essential hypertension Son No problems noted. Daughter No problems noted. Social History Smoking/Tobacco Use Status: Never Second Hand Exposure: Yes Smoking risk assessment performed?: Yes Alcohol Intake: current Alcohol Intake frequency: a few times a month Drug use: Never Substance use type: does not use Caregiver/Support person: No Household members: spouse and children Housing: house Number of Children: 3 number of grandchildren: 6 Communication Needs: None Education Level: college Details: attended community college Do you need help understanding health information?: Never current occupation: homemaker Pets and animals: Yes Pets and animals: cat(s) Sexually active: Yes What is your relationship status?: How often do you talk on the phone with friends or family?: once per week How often do you get together with friends or relatives?: decline to answer How often do you attend samaritan or samaritan services?: decline to answer Do you belong to any clubs or organized social groups?: decline to answer Panel score (0-1 are the most socially isolated patients): 1 Duration: decline to answer Frequency: decline to answer Jayne/Muslim: No preference Special jayne needs: No Seatbelt use: always Helmet use: Yes Drive intox or ride w/intox compactor driver: No Do you feel safe at home: Yes Do you feel safe in your relationship?: Yes Exam Const General: cooperative and uncomfortable Orientation: alert and awake [facility] Head: normocephalic and atraumatic Eyes Conjunctivae: normal conjunctivae Sclera: normal sclerae Resp Auscultation: clear to auscultation bilaterally, no rales, no rhonchi and no wheezes Cardio Rate: regular rate and not tachycardic Rhythm: regular rhythm GI Palpation: soft, not firm, no guarding, no masses and not rigid Back/Spine/Pelvis Cervical Spine: No cervical spinal tenderness Thoracic/Lumbar Spine: paraspinal tenderness (Left mid thoracic), No thoracic spinal tenderness and No lumbar spinal tenderness Skin General skin exam: no ecchymosis Rashes: no rashes Neuro General: patient alert, patient awake and tone normal Extrem General: no calf tenderness and no edema Course Vital Signs Vital signs: Vital Signs Temperature 37.3 C 01/02/23 11:57 Pulse 68 01/02/23 11:57 Respiratory Rate 18 01/02/23 11:57 Blood Pressure 186/92 H 01/02/23 11:57 Pulse Oximetry 96 01/02/23 11:57 Temperature 37.3 C 01/02/23 11:57 Temperature Source Temporal Artery Scan 01/02/23 11:57 Pulse 68 01/02/23 11:57 Respiratory Rate 18 01/02/23 11:57 Blood Pressure 186/92 H 01/02/23 11:57 Blood Pressure Position Sitting 01/02/23 11:57 Pulse Oximetry 96 01/02/23 11:57 Oxygen Delivery Method Room Air 01/02/23 11:57 Oxygen Flow Rate 0 01/02/23 11:57 Pain Level 4 01/02/23 14:21 Lab/Test Results Lab/Test Results: Laboratory Tests Range/Units 01/02/23 01/02/23 01/02/23 13:21 14:15 14:15 WBC (4.4-10.8) 10^3/uL RBC (3.93-5.22) 10^6/uL Hgb (11.2-15.7) g/dL Hct (36.0-46.0) % MCV (80-95) fL MCH (27.0-33.0) pg MCHC (32.0-36.0) % RDW (11.7-14.6) % Plt Count (130-400) 10^3/uL MPV (8.0-11.0) fL Immature Gran % Neutrophils % Lymphocytes % Monocytes % Eosinophils % Basophils % Nucleated RBC % (0.0-0.3) % Absolute Neutrophils (1.2-6.7) 10^3/uL Absolute Lymphocytes (1.2-3.4) 10^3/uL Absolute Monocytes (0.1-0.8) 10^3/uL Absolute Eosinophils (0.0-0.7) 10^3/uL Absolute Basophils (0.0-0.2) 10^3/uL Sodium (136-145) mmol/L 141 Potassium (3.5-5.1) mmol/L 3.7 Chloride (98-107) mmol/L 103 Carbon Dioxide (21.0-32.0) mmol/L 28.9 Anion Gap (3-11) mmol/L 9.1 BUN (7-18) mg/dL 10 Creatinine (0.55-1.02) mg/dL 0.8 Est GFR (CKD-EPI 2020) (mL/min/1.73m2) 82.23 Glucose (74-106) mg/dL 98 Calcium (8.5-10.1) mg/dL 9.4 Magnesium (1.8-2.4) mg/dL 2.0 Total Bilirubin (0.2-1.0) mg/dL 0.4 AST (15-37) U/L 20 ALT (14-59) U/L 40 Alkaline Phosphatase (46-116) U/L 102 Total Protein (6.4-8.2) g/dL 8.0 Albumin (3.4-5.0) g/dL 3.8 Lipase (16-77) U/L 27 Urine Color (Yellow) Yellow Urine Clarity (Clear) Clear Urine pH (5-8) 5.5 Ur Specific [place] (1.005-1.025) 1.020 Urine Protein (Negative) mg/dL Negative Urine Ketones (Negative) mg/dL Negative Urine Blood (Negative) Negative Urine Nitrite (Negative) Negative Urine Bilirubin (Negative) Negative Urine Urobilinogen (Up to 0.2) mg/dL 0.2 Ur Leukocyte Esterase (Negative) Negative Urine Glucose (Negative) mg/dL Negative Range/Units 01/02/ 14:15 WBC (4.4-10.8) 10^3/uL 8.72 RBC (3.93-5.22) 10^6/uL 5.19 Hgb (11.2-15.7) g/dL 14.5 Hct (36.0-46.0) % 44.9 MCV (80-95) fL 87 MCH (27.0-33.0) pg 27.9 MCHC (32.0-36.0) % 32.3 RDW (11.7-14.6) % 14.6 Plt Count (130-400) 10^3/uL 270 MPV (8.0-11.0) fL 9.1 Immature Gran % 0.5 Neutrophils % 63.3 Lymphocytes % 28.9 Monocytes % 5.4 Eosinophils % 1.6 Basophils % 0.3 Nucleated RBC % (0.0-0.3) % 0.0 Absolute Neutrophils (1.2-6.7) 10^3/uL 5.52 Absolute Lymphocytes (1.2-3.4) 10^3/uL 2.52 Absolute Monocytes (0.1-0.8) 10^3/uL 0.47 Absolute Eosinophils (0.0-0.7) 10^3/uL 0.14 Absolute Basophils (0.0-0.2) 10^3/uL 0.03 Sodium (136-145) mmol/L Potassium (3.5-5.1) mmol/L Chloride (98-107) mmol/L Carbon Dioxide (21.0-32.0) mmol/L Anion Gap (3-11) mmol/L BUN (7-18) mg/dL Creatinine (0.55-1.02) mg/dL Est GFR (CKD-EPI 2020) (mL/min/1.73m2) Glucose (74-106) mg/dL Calcium (8.5-10.1) mg/dL Magnesium (1.8-2.4) mg/dL Total Bilirubin (0.2-1.0) mg/dL AST (15-37) U/L ALT (14-59) U/L Alkaline Phosphatase (46-116) U/L Total Protein (6.4-8.2) g/dL Albumin (3.4-5.0) g/dL Lipase (16-77) U/L Urine Color (Yellow) Urine Clarity (Clear) Urine pH (5-8) Ur Specific [place] (1.005-1.025) Urine Protein (Negative) mg/dL Urine Ketones (Negative) mg/dL Urine Blood (Negative) Urine Nitrite (Negative) Urine Bilirubin (Negative) Urine Urobilinogen (Up to 0.2) mg/dL Ur Leukocyte Esterase (Negative) Urine Glucose (Negative) mg/dL
[2023-01-02] MEDS: Normal Saline - Diluent 50 ML VIAL IJ (15:09)
[2023-01-02] MEDS: Omnipaque 350 MG/ML 500 ML BTL-Imaging package IJ (15:10)
[2023-01-02 16:23] VITALS: BP 176/99
[2023-01-02 16:30] VITALS: BP 168/93; PULSE 88; RESP 23; TEMP 37; O2SAT 97
== END 2023-01-02 16:34 | disposition home or self-care (01) ==
PROVIDERS: Emergency Provider Student in an Organized Health Care Education/Training Program; PCP Nurse Practitioner Family
DX: M54.9 Dorsalgia, unspecified (principal)
CPT/HCPCS: 36415; 71275; 80053; 83690; 96374; 99284; 74174; 81003; 83735; 85025; J0131

== ENCOUNTER 2023-06-26 02:18 | Outpatient (CLI) | payer BC, SELFPAY ==
[2023-06-26 10:11] LABS: CREATININE 0.7 mg/dL (0.55-1.02); Calculated LDL 156 mg/dL (<100); Cholesterol 226 mg/dL (<200); Estimated GFR 96.52 (mL/min/1.73m2); HDL Cholesterol 48 mg/dL (40-60); Potassium 4.3 mmol/L (3.5-5.1); Triglyceride 111 mg/dL (<150)
== END 2023-06-26 02:19 | disposition home or self-care (01) ==
LOC: LBO 02:18
PROVIDERS: PCP Nurse Practitioner Family; Visit Provider Nurse Practitioner Family
DX: I10 Essential (primary) hypertension (principal); E78.2 Mixed hyperlipidemia; Z13.1 Encounter for screening for diabetes mellitus
CPT/HCPCS: 36415; 80061; 82565; 83036; 84132

== ENCOUNTER 2024-08-02 02:49 | Outpatient (CLI) | payer MEDICARE, BC, SELFPAY ==
[2024-08-02 08:37] LABS: Anion Gap 10.2 mmol/L (3-11); BUN 18 mg/dL (7-18); CO2 25.8 mmol/L (21.0-32.0); CREATININE 0.8 mg/dL (0.55-1.02); Calcium 9.3 mg/dL (8.5-10.1); Calculated LDL 144 mg/dL (<100); Chloride 106 mmol/L (98-107); Cholesterol 224 mg/dL (<200); Estimated GFR 81.72 (mL/min/1.73m2); Ferritin 271 ng/mL (8-252); Glucose 126 mg/dL (74-106); HDL Cholesterol 49 mg/dL (>or=50); Potassium 4.4 mmol/L (3.5-5.1); Sodium 142 mmol/L (136-145); Triglyceride 159 mg/dL (<150); Vitamin B12 1301 pg/mL (193-986)
[2024-08-02 18:56] LABS: Hepatitis C Ab w Rflx HCV PCR Negative (Negative)
== END 2024-08-02 02:50 | disposition home or self-care (01) ==
PROVIDERS: PCP Nurse Practitioner Family; Visit Provider Nurse Practitioner Family
DX: Z13.1 Encounter for screening for diabetes mellitus (principal); D51.1 Vitamin B12 deficiency anemia due to selective vitamin B12 malabsorption with proteinuria; I10 Essential (primary) hypertension; Z13.6 Encounter for screening for cardiovascular disorders; G47.33 Obstructive sleep apnea (adult) (pediatric); Z11.59 Encounter for screening for other viral diseases
CPT/HCPCS: 36415; 80048; 80061; 86803; 82607; 82728; 83036

== ENCOUNTER 2024-08-11 00:48 | Outpatient (CLI) | payer MEDICARE, BC, SELFPAY ==
--- NOTE | 2024-08-11 08:00 | DI.DEXA_ITS ---
Exam(s) XR DEXA BONE DENSITY W/WO CAPRICE EXAM: XR DEXA BONE DENSITY W/WO CAPRICE CLINICAL HISTORY: Screening for osteoporosis,menopausal disorder,N95.9 TECHNIQUE: COMPARISON: No exams were available for comparison FINDINGS: Lateral Spine Image: Unremarkable. No compression deformities identified. Left hip: Total T-Score: 0.0 Total Z-Score: 1.3 T- and Z-scores: Within normal limits. Lumbar Spine: Total T-Score: 1.1 Total Z-Score: 2.9 T- and Z-scores: Within normal limits. IMPRESSION: No evidence of osteoporosis.
== END 2024-08-11 01:08 ==
LOC: DI 00:48
PROVIDERS: PCP Nurse Practitioner Family; Visit Provider Nurse Practitioner Family
DX: N95.9 Unspecified menopausal and perimenopausal disorder (principal); Z13.820 Encounter for screening for osteoporosis
CPT/HCPCS: 77080

== ENCOUNTER 2024-08-19 00:14 | Outpatient (CLI) | payer MEDICARE, BC, SELFPAY ==
--- NOTE | 2024-08-19 10:57 | DI.MAMMO_ITS ---
Exam(s) MG MAMMO SCREENING 60 MIN DUR EXAM: MG MAMMO SCREENING 60 MIN DUR CLINICAL HISTORY: breast cancer screening, HX BREAST CANCER, Z12.39, Z85.3 TECHNIQUE: Mammograms were interpreted according to the usual protocol including computer analysis w [employer] CAD system, tomosynthesis and C-view imaging. COMPARISON: 2015 through 2022 FINDINGS: The breasts are composed of scattered fibroglandular densities, Breast Density category B. No suspicious masses or suspicious microcalcifications are seen. Post lumpectomy scarring is again n oted in the superior right breast. There are coarse, benign stable calcifications. No skin thickening or abnormal axillary lymph nodes are seen. There has been no significant change from prior exams. IMPRESSION: BI-RADS Category 2 - Benign Findings Yearly screening mammography is recommended. Breast Density - Category B, scattered fibroglandular densities. A negative radiographic report should not delay biopsy if a dominant or clinically suspicious mass is present. Up to ten percent of cancers are not identified on mammography. A negative report may reinforce clinical impression. Adenosis and dense breasts may obscure an underlying neoplasm. False positive reports average 6 to 10%. Patient will receive a letter notifying them of these results.
== END 2024-08-19 00:34 ==
LOC: DI 00:15
PROVIDERS: PCP Nurse Practitioner Family; Visit Provider Nurse Practitioner Family
DX: Z12.31 Encounter for screening mammogram for malignant neoplasm of breast (principal); Z85.3 Personal history of malignant neoplasm of breast; R92.323 Mammographic fibroglandular density, bilateral breasts; D24.1 Benign neoplasm of right breast
CPT/HCPCS: 77063; 77067

== ENCOUNTER → 2025-04-27 13:38 | Outpatient (CLI) | payer MEDICARE, BC, SELFPAY ==
--- NOTE | 2025-04-27 13:30 | DI.RAD_ITS ---
Exam(s) XR KNEE RT 3V AP,LAT,PEDRO LUIS EXAM: XR KNEE RT 3V AP,LAT,PEDRO LUIS CLINICAL HISTORY: Right knee pain/Arthritis M17.10. TECHNIQUE: 2D digital imaging was performed. Three views. COMPARISON: No exams were available for comparison FINDINGS: BONES: No acute fracture is present. No bony destructive lesion is seen. JOINTS: Mild to moderate narrowing of the medial femoral tibial joint space and periarticular spurring. Spurring is also present at the patellofemoral joint. No joint effusion is seen. SOFT TISSUE: Normal. IMPRESSION: Moderate degenerative changes. DATA REPOSITORY: RADIATION DOSE DELIVERED:
== END ==
LOC: DI 13:45
PROVIDERS: PCP Nurse Practitioner Family; Visit Provider Physician Assistant Medical
DX: M17.11 Unilateral primary osteoarthritis, right knee (principal); M25.561 Pain in right knee
CPT/HCPCS: 73562